=== PATIENT | female | born 2000 | race Two or more races ===

== ENCOUNTER → 2024-01-31 | Outpatient (CLI) | payer BC, SELFPAY ==
[2024-02-05 03:02] LABS: A. alternata (M6) IgE <0.10 kU/L; A. fumigatus (M3) Class 1; A. fumigatus (M3) IgE 0.35 kU/L; Alder (T2) Class 0; Alder (T2) IgE <0.10 kU/L; Bermuda Grass (G2) Class 1; Bermuda Grass (G2) IgE 0.65 kU/L; Birch (T3) Class 0/1; Birch (T3) IgE 0.11 kU/L; C. herbarum (M2) Class 0; C. herbarum (M2) IgE <0.10 kU/L; Cat Dander (e1) Class 3; Cat Dander (e1) IgE 4.49 kU/L; Cockroach (I6) IgE 0.15 kU/L; Common Ragweed (W1) Class 5; D. farinae (D2) Class 2; D. farinae (D2) IgE 0.85 kU/L; D. pteronyssinus (D1) Class 1; D. pteronyssinus (D1) IgE 0.48 kU/L; Dog Dander (E5) IgE 0.38 kU/L; Elm (T8) IgE 0.23 kU/L; Mountain Cedar (T6) Class 0/1; Mountain Cedar (T6) IgE 0.33 kU/L; Mouse Ur Prot (E72) IgE <0.10 kU/L; Mugwort (W6) Class 0; Mugwort (W6) IgE <0.10 kU/L; Oak White (T7) Class 0/1; Oak White (T7) IgE 0.11 kU/L; Olive Tree (T9) Class 3; Olive Tree (T9) IgE 3.78 kU/L; P. notatum (M1) Class 0; P. notatum (M1) IgE <0.10 kU/L; Russian Thistle (W11) Class 0/1; Russian Thistle (W11) IgE 0.33 kU/L; Sycamore (T11) IgE 0.24 kU/L; Timothy Grass (G6) IgE 0.38 kU/L; White Mulberry (T70) IgE <0.10 kU/L
[2024-02-05 07:03] LABS: A. alternata (M6) Class 0; Cockroach (I6) Class 0/1; Common Pigweed (W14) Class 2; Dog Dander (E5) Class 1; Elm (T8) Class 0/1; IgE, Total, Serum 314 kU/L (114 OR LESS); Mouse Ur Prot (E72) Class 0; Sycamore (T11) Class 0/1; Timothy Grass (G6) Class 1; White Mulberry (T70) Class 0
[2024-02-05 11:21] LABS: A. tenuis (M6) IgE <0.10 kU/L; C. herbarum (M2) IgE <0.10 kU/L; Cat Dander (e1) IgE 4.77 kU/L; Dog Dander (E5) IgE 0.46 kU/L; Elm (T8) IgE 0.26 kU/L; House Dust-HS (H2) IgE 0.64 kU/L; June Grass (G8) IgE 0.49 kU/L; Russian Thistle (W11) IgE 0.35 kU/L
[2024-02-06 06:23] LABS: A. tenuis (M6) Class 0; C. herbarum (M2) Class 0; Cat Dander (e1) Class 3; Dog Dander (E5) Class 1; Elm (T8) Class 0/1; House Dust-HS (H2) Class 1; IgE, Serum* 364 kU/L (114 OR LESS); June Grass (G8) Class 1; Russian Thistle (W11) Class 1
== END | disposition home or self-care (01) ==
PROVIDERS: PCP Family Medicine; Referring Provider Physician Assistant; Visit Provider Physician Assistant
DX: J30.9 Allergic rhinitis, unspecified (principal)
CPT/HCPCS: 36415; 82785; 86003

== ENCOUNTER → 2025-01-30 | Outpatient (CLI) | payer BC, SELFPAY ==
[2025-01-30 09:57] LABS: Collection Type, Urine Clean Catch
[2025-01-30 10:11] LABS: Basophils # (Auto) 0.1 Thou/mm3 (0.0-0.2); Basophils % (Auto) 1 % (0-2.5); Eosinophils # (Auto) 0.1 Thou/mm3 (0.0-0.5); Eosinophils % (Auto) 2 % (0-10); Hematocrit 41.3 % (36.0-46.0); Hemoglobin 14.1 g/dL (12.0-16.0); Immature Granulocytes Auto 0.01 Thou/mm3 (0.00-0.00); Lymphocytes # (Auto) 2.7 Thou/mm3 (1.0-4.8); Lymphocytes % (Auto) 46 % (10-50); Mean Corpuscular HGB Conc 34.1 g/dl (31.0-37.0); Mean Corpuscular Hemoglobin 30.2 pg (25.0-35.0); Mean Corpuscular Volume 88 fL (80-100); Monocytes # (Auto) 0.5 Thou/mm3 (0.0-0.8); Monocytes % (Auto) 8 % (0-12); Neutrophils # (Auto) 2.5 Thou/mm3 (1.8-7.7); Neutrophils % (Auto) 43 % (37-80); Nucleated Red Blood Cell # 0.00 Thou/mm3 (0.00-0.00); Nucleated Red Blood Cell % 0 /100 WBC (0); Platelet Count 249 Thou/mm3 (140-440); RDW Standard Deviation 39.8 fL (36.4-46.3); Red Blood Count 4.67 Miln/mm3 (4.00-5.20); White Blood Count 5.8 Thou/mm3 (3.6-11.0)
[2025-01-30 10:12] LABS: Bacteria,Urine Rare; Bilirubin,Urine Negative (Negative); Blood,Urine Negative (Negative); Clarity,Urine Clear (Clear/Hazy); Color,Urine Yellow (Lt Yel-Yel); Culture Indicated,Urine Not Indicated; Glucose, Urine Negative (Negative); Hyaline Casts,Urine < 1 /hpf (0-1); Ketones,Urine 4+ (Negative); Leukocyte Esterase,Urine Negative (Negative); Nitrite,Urine Negative (Negative); PH,Urine 5.5 (5.0-7.0); Protein,Urine Trace (Neg - Trace); RBC,Urine 3 /hpf (0-3); Specific Gravity,Urine 1.036 (1.001-1.035); Squamous Epithelial Cell,Urine 6 /hpf (0-5); Urobilinogen,Urine Negative mg/dL (0.0-1.0); WBC,Urine 5 /hpf (0-5)
[2025-01-30 10:32] LABS: Alanine Aminotransferase 25 U/L (10-49); Albumin, Serum 4.8 gm/dL (3.5-5.0); Albumin/Globulin Ratio 1.7 (1.2-2.2); Alkaline Phosphatase 60 U/L (46-116); Anion Gap 13 (7-16); Aspartate Amino Transferase 22 U/L (0-34); BUN/Creatinine Ratio 14 Ratio (12-20); Bilirubin,Total 0.7 mg/dL (0.3-1.2); Blood Urea Nitrogen 13 mg/dL (9-23); Calcium 9.5 mg/dL (8.3-10.6); Calcium (Corrected) 9.5 mg/dL (8.5-10.1); Carbon Dioxide 25.1 mMol/L (20.0-31.0); Cardiac Risk Estimate 2.7 RATIO (3.7-5.6); Chloride 104 mMol/L (98-107); Cholesterol 195 mg/dL (132-200); Creatinine (Component) 0.9 mg/dL (0.6-1.3); Globulin 2.8 gm/dL (2.3-3.5); Glucose 75 mg/dL (74-106); HDL Cholesterol 71 mg/dL (40-60); LDL Cholesterol,Calculated 106 mg/dL (0-130); Osmolality,Calculated 282 (275-295); Potassium 3.9 mMol/L (3.4-5.1); Sodium 142 mMol/L (136-145); Thyroid Stimulating Hormone 1.50 uIU/mL (0.55-4.78); Total Protein 7.6 gm/dL (5.7-8.2); Triglycerides 88 mg/dL (30-150); eGFR > 60 See Note
[2025-01-30 14:32] LABS: Vitamin D 25 Hydroxy Total 59.9 ng/mL (7.3-40.2)
== END | disposition home or self-care (01) ==
PROVIDERS: PCP Physician Assistant; Referring Provider Physician Assistant; Visit Provider Physician Assistant
DX: Z00.00 Encounter for general adult medical examination without abnormal findings (principal); E55.9 Vitamin D deficiency, unspecified
CPT/HCPCS: 36415; 80053; 80061; 81001; 82306; 84443; 85025